=== PATIENT | female | born 1990 | race Caucasian/White ===

== ENCOUNTER 2018-04-17 12:21 | Emergency (ER) | payer OTHER ==
[~2018-04-17] VITALS: Ht 170.2 cm; Wt 68.0 kg
[2018-04-17 12:26] VITALS: Ht 170.2 cm; Wt 68.0 kg
[2018-04-17 14:28] LABS: microscopic required? NO
[2018-04-17 14:38] LABS: BASOPHIL % 0.6 % (0-2); PLATELET COUNT 229 x10^3mcL (130-400)
[2018-04-17 14:42] LABS: RED CELL DISTRIBUTION WIDTH 17.2 % (11.5-14.5)
[2018-04-17 14:49] LABS: UA SPECIFIC GRAVITY <=1.005 (1.005-1.035); urine erythrocyte NEGATIVE (NEGATIVE)
[2018-04-17 14:59] LABS: AMPHETAMINE QUAL UR NONE DETECTED (See below)
[2018-04-17 15:06] LABS: CALCIUM 8.8 mg/dL (8.5-10.1); CARBON DIOXIDE 28.6 mmol/L (21-32); CHLORIDE SERUM 101 mmol/L (98-107); CREATININE SERUM 0.9 mg/dL (0.6-1.0); GFR1 > 60 mL/min; GLUCOSE SERUM 93 mg/dL (74-106); POTASSIUM SERUM 3.7 mmol/L (3.5-5.1); SODIUM SERUM 136 mmol/L (136-145)
[2018-04-17 15:19] LABS: CK-MB 2.6 ng/mL (0-3.6); T3 TOTAL 2.23 ng/mL
[2018-04-17 15:20] LABS: ALBUMIN 3.9 g/dL (3.4-5.0); ALKALINE PHOSPHATASE 98 U/L (46-116); ALT/SGPT 16 U/L (14-59); AST/SGOT 23 U/L (15-37); BILIRUBIN TOTAL 0.43 mg/dL (0.20-1.00); C REACTIVE PROTEIN 1.6 mg/dL (<=0.9); TOTAL PROTEIN, SERUM 8.2 g/dL (6.4-8.2)
[2018-04-17 15:26] LABS: ERYTHROCYTE SED RATE 16 mm/hr (0-20)
[2018-04-17 15:34] LABS: FREE T4 2.1 ng/dL (0.76-1.46)
[2018-04-17 15:38] LABS: FREE THYROXINE INDEX 5.2 ug/dL (1.4-4.5); T4(THYROXINE) 13.8 ug/dL (4.7-13.3)
[2018-04-17 16:24] VITALS: BP 117/84
== END 2018-04-17 17:55 ==
LOC: ED 12:21
PROVIDERS: Specialist
DX: E86.0 Dehydration (principal); F41.9 Anxiety disorder, unspecified; F32.9 Major depressive disorder, single episode, unspecified; F20.9 Schizophrenia, unspecified; N83.201 Unspecified ovarian cyst, right side; Z98.890 Other specified postprocedural states; Z91.040 Latex allergy status; Z88.8 Allergy status to other drugs, medicaments and biological substances
CPT/HCPCS: 84439; Q0092